=== PATIENT | female | born 1980 | race Caucasian/White ===

== ENCOUNTER 2016-08-17 15:15 | Emergency (ER) | payer OTHER ==
[~2016-08-17] VITALS: Wt 66.7 kg
[~2016-08-17 15:15] MED LIST: AMITIZA24 MCG PO; BACTRIM DS 8001 TA1 PO; HYDROCODONE BIT1 T11 PO; LITHIUM CARBON600 MG PO; SYNTHROID,LEVO75 MCG PO; TOPAMAX200 MG PO; VALIUM2 MG PO; ZOFRAN ODT4 MG SL
[2016-08-17 16:04] LABS: HEMATOCRIT 43.8 % (37.0-47.0); HEMOGLOBIN 14.2 g/dl (12.0-16.0); MEAN CELL VOLUME 98.6 fl (81.0-99.0); MEAN CORPUSCULAR HGB CONC 32.4 g/dl (33.0-37.0); MEAN PLATELET VOLUME 10.7 fl (9.6-12.3); PLATELET COUNT AUTOMATED 231 10*3/uL (130-400); RED BLOOD COUNT 4.44 10*6/uL (4.10-5.10); RED CELL DISTRI WIDTH 13.1 % (0-14.5); WHITE BLOOD COUNT 10.7 10*3/uL (4.8-10.8)
[2016-08-17 16:18] LABS: URINE AMPHETAMINES < 1000 (1000ng/ml); URINE BARBITURATES < 200 (200ng/ml); URINE COCAINE < 300 (300ng/ml)
[2016-08-17 16:19] LABS: ALKALINE PHOSPHATASE 96 U/L (45-117); BILIRUBIN, TOTAL 0.4 mg/dl (0.2-1.0); BUN 10 mg/dl (7-24); CARBON DIOXIDE 18 mmol/L (21-32); CHLORIDE 118 mmol/L (98-107); EST GLOM FILT AFRICAN AMERICAN > 60 ml/min; GLUCOSE 149 mg/dL (65-99); POTASSIUM 3.1 mmol/L (3.5-5.1); SGOT/AST 6 IU/L (3-35); SGPT/ALT 19 U/L (12-78); SODIUM 148 mmol/L (136-145); TOTAL PROTEIN 7.6 gm/dL (6.4-8.2)
[2016-08-17 16:20] LABS: BILIRUBIN NEGATIVE (NEGATIVE); BLOOD TRACE-INTACT (NEGATIVE); CLARITY CLEAR (CLEAR); COLOR YELLOW (YELLOW); GLUCOSE NEGATIVE (NEGATIVE); KETONE NEGATIVE (NEGATIVE); LEUKO ESTERASE NEGATIVE (NEGATIVE); NITRITE NEGATIVE (NEGATIVE); PH 5.5 (5.0-9.0); PROTEIN NEGATIVE (NEGATIVE); SPECIFIC GRAVITY <= 1.005 (1.005-1.030); UROBILINOGEN 0.2 E.U./dl (0.2-1.0)
[2016-08-17 16:22] LABS: LYMPHOCYTE # 0.1 10*3/uL (1.3-4.4); MONOCYTE # 0.1 10*3/uL (0.1-1.0); NEUTROPHIL # 10.5 10*3/uL (2.3-7.9); NEUTROPHILS 98 % (47-73); TOTAL CELLS COUNTED 100 #CELLS
[2016-08-17 16:23] LABS: PLATELET SUFFICIENCY NORMAL (NORMAL)
[2016-08-17 16:40] LABS: RBC 0-2 rbc/hpf (0-2); URINE REFLEX COMMENT NO (NO)
[2016-08-17] MEDS ORDERED: REGLAN10 M1 PO (19:23)
[2016-08-17] MEDS ORDERED: CULTURELLE10 Billion PO (19:23)
== END 2016-08-17 20:24 | disposition home or self-care (01) ==
LOC: ED 15:15
PROVIDERS: Nurse Practitioner Family
DX: A08.4 Viral intestinal infection, unspecified (principal); F17.200 Nicotine dependence, unspecified, uncomplicated; Z90.710 Acquired absence of both cervix and uterus; Z79.899 Other long term (current) drug therapy; Z88.0 Allergy status to penicillin; Z88.6 Allergy status to analgesic agent; Z88.8 Allergy status to other drugs, medicaments and biological substances

== ENCOUNTER → 2016-09-24 | Outpatient (CLI) | payer OTHER ==
[~2016-09-24] MED LIST changes: +CULTURELLE10 Billion PO; +REGLAN10 M1 PO
== END | disposition home or self-care (01) ==
LOC: CT 15:54
DX: N83.8 Other noninflammatory disorders of ovary, fallopian tube and broad ligament (principal); N28.1 Cyst of kidney, acquired; R18.8 Other ascites; K59.00 Constipation, unspecified; Z90.49 Acquired absence of other specified parts of digestive tract; Z90.710 Acquired absence of both cervix and uterus

== ENCOUNTER 2016-11-01 15:24 | Emergency (ER) | payer OTHER ==
[~2016-11-01] VITALS: Ht 157.4 cm; Wt 68.0 kg
[2016-11-01] MEDS ORDERED: ATIVAN1 MG PO (15:40)
[2016-11-01] MEDS ORDERED: CEPHALEXIN500 M1 PO (16:19)
== END 2016-11-01 16:22 | disposition home or self-care (01) ==
LOC: ED 15:24
DX: H65.111 Acute and subacute allergic otitis media (mucoid) (sanguinous) (serous), right ear (principal); Z90.710 Acquired absence of both cervix and uterus; Z98.890 Other specified postprocedural states; Z79.899 Other long term (current) drug therapy; Z88.0 Allergy status to penicillin; Z88.6 Allergy status to analgesic agent; Z88.8 Allergy status to other drugs, medicaments and biological substances

== ENCOUNTER → 2016-11-21 | Outpatient (CLI) | payer OTHER ==
[~2016-11-21] MED LIST changes: +ATIVAN1 MG PO; +CEPHALEXIN500 M1 PO
== END | disposition home or self-care (01) ==
LOC: LAB 15:59
DX: Z51.81 Encounter for therapeutic drug level monitoring (principal); F31.89 Other bipolar disorder; Z79.899 Other long term (current) drug therapy

== ENCOUNTER 2017-01-14 09:37 | Emergency (ER) | payer OTHER ==
[~2017-01-14] VITALS: Ht 157.4 cm; Wt 68.0 kg
[2017-01-14] MEDS ORDERED: ZITHROMAX250 MG PO (12:25)
[2017-01-14] MEDS ORDERED: DIFLUCAN150 MG PO (12:25)
== END 2017-01-14 12:59 | disposition home or self-care (01) ==
LOC: ED 09:37
DX: M53.3 Sacrococcygeal disorders, not elsewhere classified (principal); H65.113 Acute and subacute allergic otitis media (mucoid) (sanguinous) (serous), bilateral; Z88.0 Allergy status to penicillin; Z88.6 Allergy status to analgesic agent; Z88.8 Allergy status to other drugs, medicaments and biological substances; Z79.899 Other long term (current) drug therapy; W19.XXXA Unspecified fall, initial encounter; Y93.9 Activity, unspecified; Y92.9 Unspecified place or not applicable; Y99.9 Unspecified external cause status

== ENCOUNTER → 2017-02-08 | Outpatient (CLI) | payer OTHER ==
[~2017-02-08] MED LIST changes: +DIFLUCAN150 MG PO; +ZITHROMAX250 MG PO
[2017-02-08 16:44] LABS: BUN 9 mg/dl (7-24); CHLORIDE 115 mmol/L (98-107); CREATININE 0.94 mg/dL (0.55-1.02); POTASSIUM 3.6 mmol/L (3.5-5.1); SODIUM 142 mmol/L (136-145)
[2017-02-08 16:49] LABS: FREE T4 1.44 ng/dl (0.76-1.46)
[2017-02-08 16:55] LABS: THYROID STIM HORMONE (HS) 0.392 uIU/ml (0.358-4.75)
[2017-02-09 06:15] LABS: PROLACTIN 004465 1.6 ng/mL (4.8-23.3)
== END | disposition home or self-care (01) ==
LOC: LAB 16:14
PROVIDERS: Internal Medicine
DX: D35.2 Benign neoplasm of pituitary gland (principal); E55.9 Vitamin D deficiency, unspecified; E03.9 Hypothyroidism, unspecified; R73.02 Impaired glucose tolerance (oral); E87.6 Hypokalemia

== ENCOUNTER 2017-03-19 18:07 | Emergency (ER) | payer OTHER ==
[~2017-03-19] VITALS: Wt 67.6 kg
== END 2017-03-19 21:44 | disposition home or self-care (01) ==
LOC: ED 18:07
DX: S93.401A Sprain of unspecified ligament of right ankle, initial encounter (principal); Z88.0 Allergy status to penicillin; Z88.6 Allergy status to analgesic agent; X50.9XXA Other and unspecified overexertion or strenuous movements or postures, initial encounter; Y93.89 Activity, other specified; Y92.9 Unspecified place or not applicable; Y99.9 Unspecified external cause status

== ENCOUNTER → 2017-06-18 | Outpatient (CLI) | payer OTHER ==
[2017-06-18 11:54] LABS: BASO % 0.3 % (0.0-1.0); EOS # 0.2 10*3/uL (0.0-0.4); EOS % 2.3 % (1.0-4.0); HEMATOCRIT 39.2 % (37.0-47.0); LYMPH # 1.8 10*3/uL (1.3-4.4); LYMPH % 25.3 % (27.0-41.0); MEAN CELL VOLUME 95.1 fl (81.0-99.0); MEAN CORPUSCULAR HGB 31.6 pg (27.0-31.0); MEAN CORPUSCULAR HGB CONC 33.2 g/dl (33.0-37.0); MEAN PLATELET VOLUME 11.1 fl (9.6-12.3); MONO # 0.5 10*3/uL (0.1-1.0); MONO % 6.4 % (3.0-9.0); NEUT # 4.6 10*3/uL (2.3-7.9); NEUT % 65.3 % (47.0-73.0); PLATELET COUNT AUTOMATED 295 10*3/uL (130-400); RED BLOOD COUNT 4.12 10*6/uL (4.10-5.10); RED CELL DISTRI WIDTH 12.8 % (0-14.5); WHITE BLOOD COUNT 7.1 10*3/uL (4.8-10.8)
[2017-06-18 12:23] LABS: ALBUMIN 3.7 gm/dl (3.1-4.5); ALKALINE PHOSPHATASE 95 U/L (45-117); BUN 9 mg/dl (7-24); CHLORIDE 113 mmol/L (98-107); CREATININE 1.15 mg/dL (0.55-1.02); POTASSIUM 3.2 mmol/L (3.5-5.1); SGOT/AST 8 IU/L (3-35); SGPT/ALT 17 U/L (12-78); SODIUM 144 mmol/L (136-145); TOTAL PROTEIN 7.2 gm/dL (6.4-8.2)
== END | disposition home or self-care (01) ==
LOC: LAB 11:26
PROVIDERS: Physician Assistant
DX: Z51.81 Encounter for therapeutic drug level monitoring (principal); Z79.899 Other long term (current) drug therapy

== ENCOUNTER → 2017-08-25 | Outpatient (CLI) | payer OTHER ==
[2017-08-27 06:13] LABS: ESTRADIOL 269.7 pg/mL (.); FOLLICLE STIMULATING HORMONE 2.6 mIU/mL (.)
== END | disposition home or self-care (01) ==
LOC: LAB 09:10
PROVIDERS: Student in an Organized Health Care Education/Training Program
DX: N95.1 Menopausal and female climacteric states (principal); M25.571 Pain in right ankle and joints of right foot

== ENCOUNTER 2017-09-26 08:04 | Emergency (ER) | payer OTHER ==
[~2017-09-26] VITALS: Ht 157.4 cm; Wt 71.7 kg
[2017-09-26 09:03] LABS: BILIRUBIN NEGATIVE (NEGATIVE); BLOOD NEGATIVE (NEGATIVE); CLARITY CLEAR (CLEAR); COLOR STRAW (YELLOW); GLUCOSE NEGATIVE (NEGATIVE); KETONE NEGATIVE (NEGATIVE); LEUKO ESTERASE NEGATIVE (NEGATIVE); NITRITE NEGATIVE (NEGATIVE); SPECIFIC GRAVITY <= 1.005 (1.005-1.030); UROBILINOGEN 0.2 E.U./dl (0.2-1.0)
[2017-09-26 09:13] LABS: URINE AMPHETAMINES < 1000 (1000ng/ml); URINE BARBITURATES < 200 (200ng/ml); URINE BENZODIAZEPINES < 200 (200ng/ml); URINE CANNABINOIDS (THC) > 50 (50ng/ml); URINE COCAINE < 300 (300ng/ml); URINE METHADONE < 300 (300ng/ml); URINE OPIATES < 300 (300ng/ml)
[2017-09-26 09:14] LABS: URINE PHENCYCLIDINE < 25 (25ng/ml)
[2017-09-26 09:15] LABS: BACTERIA 1+; WBC 0-2 wbc/hpf (0-5)
== END 2017-09-26 09:55 | disposition home or self-care (01) ==
LOC: ED 08:04
PROVIDERS: Emergency Medicine
DX: M54.5 Low back pain (principal); Z90.710 Acquired absence of both cervix and uterus; Z98.890 Other specified postprocedural states; Z79.899 Other long term (current) drug therapy; Z88.0 Allergy status to penicillin; Z88.6 Allergy status to analgesic agent; Z88.8 Allergy status to other drugs, medicaments and biological substances; X50.1XXA Overexertion from prolonged static or awkward postures, initial encounter; Y93.89 Activity, other specified; Y92.89 Other specified places as the place of occurrence of the external cause; Y99.9 Unspecified external cause status

== ENCOUNTER → 2017-10-16 | Outpatient (CLI) | payer OTHER | END | disposition home or self-care (01) | LOC: RAD 15:28 | DX: S93.401D Sprain of unspecified ligament of right ankle, subsequent encounter (principal); X58.XXXD Exposure to other specified factors, subsequent encounter ==

== ENCOUNTER 2017-11-01 14:58 | Emergency (ER) | payer OTHER ==
[~2017-11-01] VITALS: Ht 157.4 cm; Wt 74.8 kg
[2017-11-01 15:22] LABS: HEMATOCRIT 45.2 % (37.0-47.0); HEMOGLOBIN 14.8 g/dl (12.0-16.0); MEAN CELL VOLUME 99.6 fl (81.0-99.0); MEAN CORPUSCULAR HGB 32.6 pg (27.0-31.0); MEAN CORPUSCULAR HGB CONC 32.7 g/dl (33.0-37.0); MEAN PLATELET VOLUME 11.1 fl (9.6-12.3); PLATELET COUNT AUTOMATED 199 10*3/uL (130-400); RED BLOOD COUNT 4.54 10*6/uL (4.10-5.10); RED CELL DISTRI WIDTH 12.5 % (0-14.5); WHITE BLOOD COUNT 12.2 10*3/uL (4.8-10.8)
[2017-11-01 15:27] LABS: BILIRUBIN NEGATIVE (NEGATIVE); BLOOD TRACE-INTACT (NEGATIVE); CLARITY CLEAR (CLEAR); COLOR YELLOW (YELLOW); GLUCOSE NEGATIVE (NEGATIVE); KETONE NEGATIVE (NEGATIVE); LEUKO ESTERASE NEGATIVE (NEGATIVE); NITRITE NEGATIVE (NEGATIVE); SPECIFIC GRAVITY <= 1.005 (1.005-1.030); UROBILINOGEN 0.2 E.U./dl (0.2-1.0)
[2017-11-01 15:35] LABS: CREATININE 1.48 mg/dL (0.55-1.02); POTASSIUM 3.7 mmol/L (3.5-5.1); TOTAL PROTEIN 7.9 gm/dL (6.4-8.2)
[2017-11-01 15:42] LABS: PLATELET SUFFICIENCY NORMAL (NORMAL); TOTAL CELLS COUNTED 100 #CELLS
[2017-11-01] MEDS ORDERED: ZOFRAN4 MG PO (17:31)
[2017-11-01] MEDS ORDERED: NYSTATIN1 EAC5 T (17:31)
== END 2017-11-01 17:53 | disposition home or self-care (01) ==
LOC: ED 14:58
PROVIDERS: Nurse Practitioner Family
DX: E86.0 Dehydration (principal); B37.2 Candidiasis of skin and nail; Z90.710 Acquired absence of both cervix and uterus; Z79.899 Other long term (current) drug therapy; Z88.0 Allergy status to penicillin; Z88.6 Allergy status to analgesic agent; Z88.8 Allergy status to other drugs, medicaments and biological substances

== ENCOUNTER → 2017-12-14 | Outpatient (CLI) | payer OTHER ==
[~2017-12-14] MED LIST changes: +NYSTATIN1 EAC5 T; +ZOFRAN4 MG PO
[2017-12-14 10:15] LABS: BUN 10 mg/dl (7-24); CHLORIDE 116 mmol/L (98-107); CREATININE 1.05 mg/dL (0.55-1.02); POTASSIUM 3.7 mmol/L (3.5-5.1); SODIUM 144 mmol/L (136-145)
[2017-12-14 10:23] LABS: THYROID STIM HORMONE (HS) 0.708 uIU/ml (0.358-4.75)
== END ==
LOC: LAB 09:20
PROVIDERS: Internal Medicine
DX: E03.9 Hypothyroidism, unspecified (principal); E55.9 Vitamin D deficiency, unspecified; D35.2 Benign neoplasm of pituitary gland; E87.6 Hypokalemia; R25.2 Cramp and spasm

== ENCOUNTER → 2018-02-28 | Outpatient (CLI) | payer OTHER ==
[2018-02-28 16:33] LABS: BASO % 0.5 % (0.0-1.0); EOS # 0.2 10*3/uL (0.0-0.4); EOS % 2.2 % (1.0-4.0); HEMATOCRIT 42.2 % (37.0-47.0); HEMOGLOBIN 14.2 g/dl (12.0-16.0); LYMPH # 1.9 10*3/uL (1.3-4.4); LYMPH % 24.5 % (27.0-41.0); MEAN CORPUSCULAR HGB CONC 33.6 g/dl (33.0-37.0); MEAN PLATELET VOLUME 10.7 fl (9.6-12.3); MONO # 0.4 10*3/uL (0.1-1.0); MONO % 4.6 % (3.0-9.0); NEUT # 5.1 10*3/uL (2.3-7.9); NEUT % 67.9 % (47.0-73.0); PLATELET COUNT AUTOMATED 218 10*3/uL (130-400); RED BLOOD COUNT 4.44 10*6/uL (4.10-5.10); RED CELL DISTRI WIDTH 12.5 % (0-14.5); WHITE BLOOD COUNT 7.6 10*3/uL (4.8-10.8)
[2018-02-28 16:48] LABS: CREATININE 1.25 mg/dL (0.55-1.02); FREE T4 1.44 ng/dl (0.76-1.46); POTASSIUM 3.3 mmol/L (3.5-5.1)
[2018-02-28 16:54] LABS: THYROID STIM HORMONE (HS) 0.462 uIU/ml (0.358-4.75)
[2018-03-01 08:07] LABS: PROLACTIN 004465 1.2 ng/mL (4.8-23.3)
== END | disposition home or self-care (01) ==
LOC: LAB 15:57
PROVIDERS: Nurse Practitioner Family
DX: E55.9 Vitamin D deficiency, unspecified (principal); E87.6 Hypokalemia; E03.9 Hypothyroidism, unspecified; D35.2 Benign neoplasm of pituitary gland; R25.2 Cramp and spasm; K62.5 Hemorrhage of anus and rectum

== ENCOUNTER 2018-03-10 11:44 | Emergency (ER) | payer OTHER ==
[~2018-03-10] VITALS: Ht 154.9 cm; Wt 74.4 kg
== END 2018-03-10 13:27 | disposition home or self-care (01) ==
LOC: ED 11:44
DX: S80.02XA Contusion of left knee, initial encounter (principal); R03.0 Elevated blood-pressure reading, without diagnosis of hypertension; Z88.0 Allergy status to penicillin; Z88.6 Allergy status to analgesic agent; Z88.8 Allergy status to other drugs, medicaments and biological substances; Z79.899 Other long term (current) drug therapy; Z90.710 Acquired absence of both cervix and uterus; W01.198A Fall on same level from slipping, tripping and stumbling with subsequent striking against other object, initial encounter; Y93.89 Activity, other specified; Y92.89 Other specified places as the place of occurrence of the external cause; Y99.8 Other external cause status

== ENCOUNTER → 2018-04-16 | Outpatient (CLI) | payer OTHER ==
[2018-04-16 17:26] LABS: BASO # 0.1 10*3/uL (0.0-0.1); BASO % 0.5 % (0.0-1.0); EOS # 0.3 10*3/uL (0.0-0.4); EOS % 3.3 % (1.0-4.0); HEMATOCRIT 42.7 % (37.0-47.0); LYMPH # 2.8 10*3/uL (1.3-4.4); LYMPH % 29.9 % (27.0-41.0); MEAN CELL VOLUME 93.2 fl (81.0-99.0); MEAN CORPUSCULAR HGB 32.8 pg (27.0-31.0); MEAN CORPUSCULAR HGB CONC 35.1 g/dl (33.0-37.0); MEAN PLATELET VOLUME 10.5 fl (9.6-12.3); MONO # 0.6 10*3/uL (0.1-1.0); MONO % 5.9 % (3.0-9.0); NEUT # 5.7 10*3/uL (2.3-7.9); PLATELET COUNT AUTOMATED 243 10*3/uL (130-400); RED BLOOD COUNT 4.58 10*6/uL (4.10-5.10); RED CELL DISTRI WIDTH 12.7 % (0-14.5); WHITE BLOOD COUNT 9.5 10*3/uL (4.8-10.8)
[2018-04-16 17:59] LABS: ALBUMIN 3.9 gm/dl (3.1-4.5); ALKALINE PHOSPHATASE 80 U/L (45-117); BILIRUBIN, DIRECT < 0.1 mg/dL (0.0-0.2); BUN 10 mg/dl (7-24); CHLORIDE 107 mmol/L (98-107); CREATININE 1.16 mg/dL (0.55-1.02); POTASSIUM 3.5 mmol/L (3.5-5.1); SGOT/AST 17 IU/L (3-35); SGPT/ALT 15 U/L (12-78); SODIUM 140 mmol/L (136-145); TOTAL PROTEIN 7.6 gm/dL (6.4-8.2)
[2018-04-16 18:07] LABS: THYROID STIM HORMONE (HS) 0.803 uIU/ml (0.358-4.75)
== END | disposition home or self-care (01) ==
LOC: LAB 16:55
PROVIDERS: Registered Nurse
DX: Z51.81 Encounter for therapeutic drug level monitoring (principal); Z79.899 Other long term (current) drug therapy

== ENCOUNTER → 2018-07-22 | Outpatient (CLI) | payer OTHER ==
[~2018-07-22] MED LIST changes: +CABERGOLINE0.5 MG PO; +CYTOMEL5 MCG PO; +SINGULAIR4 MG PO; +XANAX1 MG PO
[2018-07-22 12:02] LABS: BUN 13 mg/dl (7-24); CHLORIDE 105 mmol/L (98-107); CREATININE 1.08 mg/dL (0.55-1.02); FREE T4 1.36 ng/dl (0.76-1.46); POTASSIUM 3.5 mmol/L (3.5-5.1); SODIUM 139 mmol/L (136-145)
[2018-07-23 07:06] LABS: PROLACTIN 004465 19.4 ng/mL (4.8-23.3)
== END | disposition home or self-care (01) ==
LOC: LAB 10:51
PROVIDERS: Internal Medicine; Physician Assistant
DX: Z51.81 Encounter for therapeutic drug level monitoring (principal); E55.9 Vitamin D deficiency, unspecified; D35.2 Benign neoplasm of pituitary gland; E03.9 Hypothyroidism, unspecified; E87.6 Hypokalemia; R25.2 Cramp and spasm; Z79.899 Other long term (current) drug therapy

== ENCOUNTER → 2018-10-31 | Day surgery (SDC) | payer OTHER ==
[~2018-10-31] VITALS: Ht 154.9 cm; Wt 77.1 kg
--- NOTE | ~2018-10-31 | O ---
[place], [place] OPERATIVE NOTE NAME: PARVEZ ELLIS UNIT #: [id number] ROOM: DOCTOR: SHIMON WHITE MD BIRTHDATE: [birth year] DOS: 10/31/2018 PROCEDURE: Esophagogastroduodenoscopy. INDICATIONS: Abdominal pain and nausea. An informed consent was obtained from the patient after indication of procedure, the alternatives and potential complications were explained to her. PROCEDURE MEDICATION: Sedation was administered by Anesthesiology Department. SCOPE USED: Olympus diagnostic adult upper endoscope GIF-180, depth of insertion was the descending duodenum. FINDINGS: After adequate sedation, the patient was placed in left lateral decubitus position, scope was introduced under direct visualization through the upper esophageal sphincter into the esophagus. Esophageal mucosa appeared normal with no ulcerations or strictures. Lower esophageal sphincter was identified at 38 cm from incisors with normal appearing Z line. Stomach was then intubated. Gastric mucosa inspected. A large amount of food residues were noted with normal underlying mucosa. The pylorus was intubated easily. Duodenal bulb and descending duodenum were within normal range. The scope was then withdrawn after the stomach was decompressed. The patient tolerated the procedure well. IMPRESSION: 1. Large amounts of food residues in the stomach, rule out gastroparesis. 2. Normal upper gastrointestinal tract, otherwise. PLAN: We will consider a smart pill study. Office followup will be scheduled in 2-3 weeks. SHIMON WHITE MD CM:OPRECORD:OPERATIVE NOTE [id number] SHIMON WHITE MD 10/31/18 1102 interface
[2018-10-31 06:48] VITALS: BP 100/71
[2018-10-31 08:05] VITALS: BP 112/73
[2018-10-31 08:20] VITALS: BP 124/74
[2018-10-31 08:35] VITALS: BP 117/78
== END | disposition home or self-care (01) ==
LOC: SDC 10-27 08:00
DX: R10.9 Unspecified abdominal pain (principal); Z88.0 Allergy status to penicillin; Z88.8 Allergy status to other drugs, medicaments and biological substances; J45.909 Unspecified asthma, uncomplicated; F41.9 Anxiety disorder, unspecified; F32.9 Major depressive disorder, single episode, unspecified; F17.210 Nicotine dependence, cigarettes, uncomplicated; K21.9 Gastro-esophageal reflux disease without esophagitis; G47.33 Obstructive sleep apnea (adult) (pediatric); G43.909 Migraine, unspecified, not intractable, without status migrainosus; M19.90 Unspecified osteoarthritis, unspecified site; Z90.710 Acquired absence of both cervix and uterus; K58.0 Irritable bowel syndrome with diarrhea

== ENCOUNTER 2023-04-03 07:26 | Emergency (ER) | payer OTHER ==
[~2023-04-03] VITALS: Wt 81.6 kg
== END 2023-04-03 09:36 | disposition home or self-care (01) ==
LOC: ED 07:26
DX: S49.91XA Unspecified injury of right shoulder and upper arm, initial encounter (principal); M79.7 Fibromyalgia; F31.9 Bipolar disorder, unspecified; F41.9 Anxiety disorder, unspecified; E03.9 Hypothyroidism, unspecified; R60.0 Localized edema; Z88.0 Allergy status to penicillin; Z88.6 Allergy status to analgesic agent; Z88.8 Allergy status to other drugs, medicaments and biological substances; Z90.710 Acquired absence of both cervix and uterus; Z98.890 Other specified postprocedural states; W22.03XA Walked into furniture, initial encounter; Y93.89 Activity, other specified; Y92.89 Other specified places as the place of occurrence of the external cause; Y99.8 Other external cause status